=== PATIENT | male | born 1990 | race Caucasian/White ===

== ENCOUNTER 2025-04-10 03:15 | Observation (INO) ==
[2025-04-10] MEDS: SODIUM CHLORIDE 0.9% 1,000 ML IV ONE (03:40)
[2025-04-10 03:57] LABS: Hematocrit (blood only) 44.1 % (42.0-52.0); Hemoglobin 15.5 g/dl (14.0-18.0); Immature Granulocytes # (auto) 0.02 K/uL (0.01-0.20); Immature Granulocytes % (auto) 0.4 %; Mean Corpuscular Hemoglobin 29.5 pg (25.0-34.0); Mean Corpuscular Volume 84.0 fL (80.0-100.0); Platelet Count 269 K/uL (130-400); RDW Standard Deviation 36.6 fL (36.4-46.3); Red Blood Count 5.25 M/uL (4.70-6.10); White Blood Count 4.84 K/ul (4.8-10.8)
[2025-04-10 04:15] LABS: Alanine Aminotransferase 54.0 U/L (7-52); Albumin Globulin Ratio 1.4 (0.9-2); Albumin Level 4.7 gm/dl (3.4-5.0); Alkaline Phosphatase 65.0 U/L (34-104); Anion Gap 6.0 (3-11); Bilirubin,Total 0.5 mg/dl (0.2-1.0); Blood Urea Nitrogen 15.0 mg/dl (6-23); Calcium 9.6 mg/dl (8.6-10.3); Carbon Dioxide 30.0 mmol/L (21-32); Chloride 103.0 mmol/L (98-107); Creatinine Clr Calc Pharmacy 145.6 ml/min; Globulin 3.3 gm/dl (2.5-4.0); Glucose 92.0 mg/dl (70-99(Fasting)); Lipase 23.0 U/L (11-82); Potassium 3.8 mmol/L (3.5-5.1); Sodium 139.0 mmol/L (136-145); Total Protein 8.0 gm/dl (6.0-8.3)
--- NOTE | 2025-04-10 04:19 | XRay Report ---
EXAM: XR chest 1V portable CLINICAL HISTORY: Chest pain, nonspecific TECHNIQUE: An X-ray image of the chest was obtained in the AP projection. COMPARISON: No prior studies are available for comparison. FINDINGS: Pulmonary Parenchyma: The lungs are clear bilaterally. There is no evidence of consolidation, collapse, or focal opacities. No pulmonary nodules are identified. There is no evidence of pleural effusion or pleural thickening. Heart and Mediastinum: The heart size and shape are normal. There is no mediastinal widening or masses. No hilar or mediastinal lymphadenopathy is present. Bony Thorax: The bony thorax appears intact without fractures or deformities. Soft Tissues: The soft tissues overlying the chest wall are unremarkable. Chest monitor leads are seen. IMPRESSION: No acute cardiopulmonary abnormalities are identified. Electronically signed by Arnaldo Iraheta 04-10-2025 04:18 AM
[2025-04-10 04:33] LABS: Chlamydia pneumoniae PCR Not Detected (NotDetected); Coronavirus 229E PCR Not Detected (NotDetected); Coronavirus CoV-2 (COVID19)PCR Not Detected (NotDetected); Coronavirus HKU1 PCR Not Detected (NotDetected); Coronavirus NL63 PCR Not Detected (NotDetected); Coronavirus OC43PCR Not Detected (NotDetected); Human Metapneumovirus PCR Not Detected (NotDetected); Parainfluenza Virus 1 PCR Not Detected (NotDetected); Parainfluenza Virus 2 PCR Not Detected (NotDetected); Parainfluenza Virus 3 PCR Not Detected (NotDetected); Parainfluenza Virus 4 PCR Not Detected (NotDetected); Respiratory Syncytial VirusPCR Not Detected (NotDetected); Rhinovirus/Enterovirus PCR DETECTED (NotDetected)
--- NOTE | 2025-04-10 05:33 | Emergency Department Note ---
History of Present Illness General Chief complaint: Chest Pain Stated complaint: CHEST PAIN Time Seen by Provider: 04/10/25 03:21 History of Present Illness Maximum Pain Intensity: 3 This is a 34-year-old male presenting to the emergency department for evaluation of left-sided chest pain worsening for the past 1 day. Patient states that it was difficult to sleep tonight, as the pain worsens when he lays down. Patient is usually healthy without chronic medical disease. He exercises on a regular basis and does not take any medication on a regular basis. He has not had fevers or chills. No shortness of breath, lightheadedness, dizziness, or abdominal pain. There is some family history of cardiac disease in grandparents. Patient rates his current discomfort a /10. Home Medications Medication Instructions Recorded Confirmed Type No Known Home Medications 04/10/25 04/10/25 History Allergies Allergy/AdvReac Type Severity Reaction Status Date / Time No Known Allergies Allergy Verified 04/10/25 05:54 Past Med/Surg History Problem List (Updated 04/10/25 @ 06:36 by Elmo Romero PA-C) Left-sided chest pain (Acute) Rhinovirus infection (Acute) RBBB Elevated troponin (Acute) No significant past surgical history No chronic diseases present Social History Smoking Status: Never smoker Preferred Language: [place] Islander Feels Safe at Home: Yes Review of Systems A total of 10 systems reviewed and were otherwise negative Physical Exam Vital Signs Vital Signs - 24 hr 04/10/25 03:18 04/10/25 03:28 04/10/25 03:28 Temperature 36.9 C Temperature Source Temporal Artery Scan Pulse Rate 72 Pulse Rate [Apical] Pulse Rhythm [Apical] Pulse Strength [Apical] Respiratory Rate 18 Respiratory Effort / Characteristics Non-Labored Spontaneous Respiratory Depth Normal Respiratory Pattern Regular Blood Pressure 161/117 H Blood Pressure [Right Arm] Blood Pressure Mean 131 Blood Pressure Mean [Right Arm] Blood Pressure Position [Right Arm] Pulse Oximetry 98 96 Oxygen Delivery Method Room Air Room Air Room Air Sepsis Recent Fever Within 48 Hours No Sepsis New/Unexplained Change in Mental Status N/A Sepsis Action Taken by Nursing No Action Required 04/10/25 04:30 04/10/25 06:04 Temperature Temperature Source Pulse Rate Pulse Rate [Apical] 64 70 Pulse Rhythm [Apical] Regular Regular Pulse Strength [Apical] Normal Normal Respiratory Rate 17 16 Respiratory Effort / Characteristics Non-Labored Spontaneous Non-Labored Respiratory Depth Normal Normal Respiratory Pattern Regular Regular Blood Pressure Blood Pressure [Right Arm] 145/92 H Blood Pressure Mean Blood Pressure Mean [Right Arm] 109 Blood Pressure Position [Right Arm] Sitting Lying Pulse Oximetry 96 97 Oxygen Delivery Method Room Air Room Air Sepsis Recent Fever Within 48 Hours Sepsis New/Unexplained Change in Mental Status Sepsis Action Taken by Nursing VITALS: Vitals are noted on the nurse's note and reviewed by myself. Vital signs stable. GENERAL: Well-developed, well-nourished, white male, who is in no acute distress and resting comfortably. Patient is cooperative with the examination. HEAD: Normocephalic atraumatic. EARS: External ear normal. External auditory canals clear, tympanic membranes pearly steven without erythema or effusion bilaterally. EYES: Pupils equal round and reactive to light and accommodation. Conjunctivae without injection, sclerae without icterus. Extraocular movements intact. NOSE: Patent, turbinates without inflammation or discharge. MOUTH: Mucous membranes moist. Pharynx without erythema, blood, or exudate. Uvula midline. Airway patent. NECK: Supple without nuchal rigidity. No lymphadenopathy. No thyromegaly. Cervical spine is nontender. HEART: Regular rate and rhythm without murmurs gallops or rubs. LUNGS: Clear to auscultation bilaterally without wheezes, rales or rhonchi. No retractions or accessory muscle use. ABDOMEN: Positive normal bowel sounds x 4. Soft, nontender, without masses or organomegaly. No guard Course Administered Medications Discontinued Medications Aspirin (Aspirin 81 Mg Chew) 324 mg PO NOW STA Stop: 04/10/25 06:01 Last Admin: 04/10/25 06:05 Dose: 324 mg Documented By: ralph Sodium Chloride (Nss) 1,000 mls @ 999 mls/hr IV .Q1H1M ONE Stop: 04/10/25 04:28 Last Infusion: 04/10/25 04:42 Dose: Infused Documented By: ralph Admin: 04/10/25 03:40 Dose: 999 mls/hr Documented By: ROGELIO Miscellaneous Information (Patient's Allergy Info Needs Entered) 1 each N/A Q30M STA Stop: 04/10/25 05:47 Last Admin: 04/10/25 06:14 Dose: Not Given Documented By: CAROLINA Potassium Chloride (Potassium Chloride Crtab 20 Meq Tabcr) 40 meq PO NOW STA Stop: 04/10/25 05:31 Last Admin: 04/10/25 06:08 Dose: 40 meq Documented By: ralph Medical Decision Making Differential Diagnosis Differential diagnosis includes, but is not limited to: Myocardial infarction, dysrhythmia, pericarditis, pneumothorax, aortic aneurysm/dissection, DVT/PE, anxiety, GERD, PUD, electrolyte imbalance, thyroid disorder, pneumonia, bronchitis, pancreatitis, and others Laboratory Data 04/10/25 03:38 04/10/25 03:38 Lab Results 04/10/25 04/10/25 Range/Units 03:38 05:12 WBC 4.84 (4.8-10.8) K/ul RBC 5.25 (4.70-6.10) M/uL Hgb 15.5 (14.0-18.0) g/dl Hct 44.1 (42.0-52.0) % MCV 84.0 (80.0-100.0) fL MCH 29.5 (25.0-34.0) pg MCHC 35.1 (32.0-36.0) g/dL RDW Std Deviation 36.6 (36.4-46.3) fL RDW Coeff of Cori 12.2 (11.5-14.5) % Plt Count 269 (130-400) K/uL MPV 9.4 (9.4-12.4) fL Immature Gran % (Auto) 0.4 % Neut % (Auto) 39.4 % Lymph % (Auto) 47.7 % [place] % (Auto) 10.5 % Eos % (Auto) 1.2 % Baso % (Auto) 0.8 % Neut # (Auto) 1.90 (1.40-6.50) K/uL Lymph # (Auto) 2.31 (1.20-3.40) K/uL [place] # (Auto) 0.51 (0.11-0.59) K/uL Eos # (Auto) 0.06 (0.00-0.50) K/uL Baso # (Auto) 0.04 (0.00-0.20) K/uL Immature Gran # (Auto) 0.02 (0.01-0.20) K/uL D-Dimer 230 (0-500) ug/L FEU Sodium 139 (136-145) mmol/L Potassium 3.8 (3.5-5.1) mmol/L Chloride 103 (98-107) mmol/L Carbon Dioxide 30 (21-32) mmol/L Anion Gap 6 (3-11) BUN 15 (6-23) mg/dl Creatinine 0.94 (0.6-1.4) mg/dl Est Cr Clr Drug Dosing 145.6 ml/min eGFR 109.09 BUN/Creatinine Ratio 16.0 (10-20) Glucose 92 (70-99(Fasting)) mg/dl Calcium 9.6 (8.6-10.3) mg/dl Total Bilirubin 0.5 (0.2-1.0) mg/dl AST 28 (13-39) U/L ALT 54 H (7-52) U/L Alkaline Phosphatase 65 (34-104) U/L Troponin I High Sens 48.9 H 61.0 H* D (0-20) pg/ml Total Protein 8.0 (6.0-8.3) gm/dl Albumin 4.7 (3.4-5.0) gm/dl Globulin 3.3 (2.5-4.0) gm/dl Albumin/Globulin Ratio 1.4 (0.9-2) Lipase 23 (11-82) U/L Urine Color Yellow Urine Appearance Clear (Clear) Urine pH 6.5 (4.5-7.5) Ur Specific [place] 1.013 (1.000-1.030) Urine Protein Negative (Negative) Urine Glucose (UA) Negative (Negative) Urine Ketones Negative (Negative) Urine Blood Negative (Negative) Urine Nitrite Negative (Negative) Urine Bilirubin Negative (Negative) Urine Urobilinogen Negative (Negative) Ur Leukocyte Esterase Negative (Negative) Urine Comment Adenovirus (PCR) Not Detected (NotDetected) B. pertussis DNA (PCR) Not Detected (NotDetected) B.parapertussis DNA PCR Not Detected (NotDetected) C. pneumoniae DNA (PCR) Not Detected (NotDetected) Coronavirus OC43 (PCR) Not Detected (NotDetected) Coronavirus HKU1 (PCR) Not Detected (NotDetected) Coronavirus 229E (PCR) Not Detected (NotDetected) SARS-CoV-2 (PCR) Not Detected (NotDetected) Coronavirus NL63 (PCR) Not Detected (NotDetected) Human Metapneumovir PCR Not Detected (NotDetected) Influenza Type A (PCR) Not Detected (NotDetected) Influenza Type B (PCR) Not Detected (NotDetected) M. pneumoniae (PCR) Not Detected (NotDetected) Parainfluenza 1 (PCR) Not Detected (NotDetected) Parainfluenza 2 (PCR) Not Detected (NotDetected) Parainfluenza 3 (PCR) Not Detected (NotDetected) Parainfluenza 4 (PCR) Not Detected (NotDetected) RSV (PCR) Not Detected (NotDetected) Entero/Rhino (PCR) DETECTED A (NotDetected) Imaging Data Radiologist's Impression: Chest X-Ray 04/10/25 03:28 EXAM: XR chest 1V portable CLINICAL HISTORY: Chest pain, nonspecific TECHNIQUE: An X-ray image of the chest was obtained in the AP projection. COMPARISON: No prior studies are available for comparison. FINDINGS: Pulmonary Parenchyma: The lungs are clear bilaterally. There is no evidence of consolidation, collapse, or focal opacities. No pulmonary nodules are identified. There is no evidence of pleural effusion or pleural thickening. Heart and Mediastinum: The heart size and shape are normal. There is no mediastinal widening or masses. No hilar or mediastinal lymphadenopathy is present. Bony Thorax: The bony thorax appears intact without fractures or deformities. Soft Tissues: The soft tissues overlying the chest wall are unremarkable. Chest monitor leads are seen. IMPRESSION: No acute cardiopulmonary abnormalities are identified. Electronically signed by Arnaldo Iraheta 04-10-2025 04:18 AM [facility] Narrative Physical exam and history were performed. Nursing notes, EMR, and Medication List were personally reviewed. No social concerns were identified as barriers to patients care. History was provided by the Patient. Patient appears to have chest pain bringing him to the ER. This does seem left- sided. There may be a positional component. Patient is usually healthy, and exercises regularly. He previously was in the and has an athletic build. IV access was established and labs were obtained. He was hydrated with normal saline. An order was placed for continuous cardiac monitoring. The monitor shows a rate of 82 with normal sinus rhythm. Patient's blood work is as above and was reviewed. He does not have a significant elevated white blood cell count, gross anemia, bandemia, or significant electrolyte imbalance. Lipase and transaminases not diagnostic. BioFire is POSITIVE for rhinovirus. Chest x-ray independently reviewed by myself and radiology showing no acute process. Initial troponin is elevated at 49, with repeat elevating at 61. Escalation of care was considered, and felt to be necessary. The patient has chest pain with an elevating troponin. This certainly could represent myocarditis or similar process. He does not have distinct pericarditis at this time on EKG x 2. Case was discussed with the on-call hospitalist team who agreed to evaluate the patient here in the ER. Please see their dictation for further patient course, plan, disposition. The chart was completed utilizing [employer] Speech Voice Recognition Software. Grammatical errors, random word insertions, pronoun errors, and incomplete sentences are an occasional consequence of this system due to software limitations, ambient noise, and hardware issues. Any formal questions or concerns about the content, text, or information contained within the body of this dictation should be directly addressed to the provider for clarification. Impression & Plan Elevated troponin, Rhinovirus infection, Left-sided chest pain Discharge Plan Visit Data Chief Complaint: Chest Pain Stated Complaint: CHEST PAIN ED Provider: Chucho Lipscomb ED Midlevel Provider: Elmo Romero Discharge Problem: Elevated troponin, Rhinovirus infection, Left-sided chest pain Patient Disposition: Being Evaluated by Hospitalist Condition: Good Forms Stand Alone Forms: Systems[employer] Prescriptions Prescriptions: No Action No Known Home Medications Referrals Referrals: PCP,NO [Primary Care Provider] -
[2025-04-10 05:34] LABS: Appearance Urine Clear (Clear); Glucose Urine UA Negative (Negative)
[2025-04-10] MEDS: ASPIRIN 81 MG CHEW PO STA (06:05)
[2025-04-10] MEDS: POTASSIUM CHLORIDE CRTAB 20 MEQ TABCR PO STA (06:08)
--- NOTE | 2025-04-10 06:08 | History & Physical Report ---
Date of Service April 10, 2025 Assessment & Plan (1) Elevated troponin: (2) RBBB: (3) Rhinovirus infection: Plan The patient is a 34-year-old male with no significant past medical history. He reports that 2 days ago he began to develop some left parasternal chest discomfort, which radiated toward his left axillary midline. He denies any recent travels or sick exposures, he denies any changes in physical activity. 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 He has no nausea or vomiting associated with it. In emergency department he was found to have elevated troponin 48.9, and EKG with normal sinus rhythm and right bundle branch block. Potassium was 3.8, AST was 54. Patient was referred to the [facility] for further evaluation and treatment and admission. Respiratory BioFire test was positive for enterovirus/rhinovirus. Chest x-ray was negative. Elevated troponin/right bundle branch block- Troponin 48.9, follow-up pending The patient will be admitted to telemetry for serial cardiac enzymes, serial EKG's, cardiac rhythm monitoring and a 2-D echocardiogram with Dopplers. Differential including but not limited to: NSTEMI, myocarditis, pericarditis, supply/demand mismatch, others Order tick studies, magnesium level, ESR, uric acid level. Potassium 3.0, will give Klor-Con 40 mill equivalents p.o. now. Give aspirin 324 mg chewable now, and then 81 mg p.o. every morning Acetaminophen 650 mg by mouth every 6 hours as needed for mild pain or fever Consult cardiology Enterovirus/rhinovirus infection- Relatively asymptomatic as far as breathing issues he is not having shortness of breath or dyspnea on exertion. Echocardiogram help determine if patient has a viral pericarditis or myocarditis. Droplet precautions Elevated ALT- In combination with elevated troponin, tick studies have been ordered. History of Present Illness Chief Complaint: The patient presents to the emergency department with plaint of left parasternal chest discomfort which radiates under his ribs toward the mid axillary line. This began about 2 days ago, there is no associated rash, he has had no change in physical activity pattern. He denies any associated shortness of breath, dyspnea on exertion, radiation to neck or arm. He denies any recent travels or sick exposures Primary Care Provider: NO PCP The patient is a 34-year-old male with no significant past medical history. He reports that 2 days ago he began to develop some left parasternal chest discomfort, which radiated toward his left axillary midline. He denies any recent travels or sick exposures, he denies any changes in physical activity. 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 He has no nausea or vomiting associated with it. In emergency department he was found to have elevated troponin 48.9, and EKG with normal sinus rhythm and right bundle branch block. Potassium was 3.8, AST was 54. Patient was referred to the [facility] service for further evaluation and treatment and admission. Allergies Allergy/AdvReac Type Severity Reaction Status Date / Time No Known Allergies Allergy Verified 04/10/25 05:54 Home Medications Medication Instructions Recorded Confirmed Type No Known Home Medications 04/10/25 04/10/25 History Past Med/Surg History Problem List (Updated 04/10/25 @ 06:25 by Nasim French MD) Rhinovirus infection RBBB Elevated troponin No significant past surgical history No chronic diseases present Social History Smoking Status: Never smoker Preferred Language: Luxembourgish Feels Safe at Home: Yes Review of Systems Review of Systems: The patient denies palpitations, shortness of breath, dyspnea on exertion, cough, lower extremity swelling, sore throat, fevers, chills, sweats, weight change, fatigue, nausea, vomiting, diarrhea , constipation, abdominal pain, pelvic pain, blood in urine or stool, dysuria, urinary frequency or urgency, lightheadedness, dizziness, headache, memory loss, loss of consciousness, rash, abnormal bruising or bleeding, imbalance, focal or generalized weakness, numbness or tingling in arms or legs, generalized arthralgias or myalgias, back or neck pain, or night sweats. The review of systems is otherwise negative other than for that already noted above, and at least 10 systems have been reviewed. Physical Exam Physical Exam: The patient is awake, alert and oriented 3, well developed and well nourished, normocephalic and atraumatic, lying in bed and in no acute distress. HEENT--PERRL, EOMI, mucous membranes and oropharynx mildly dry. Neck--supple. No JVD. No bruits. Thyroid normal, trachea midline, no adenopathy. Heart--normal S1 and S2. No murmurs, rubs or gallops. Lungs--clear bilaterally, no respiratory distress, no accessory muscle use. No reproducible chest wall pain Abdomen--normal bowel sounds and soft. Nontender. Nondistended, no hernias or masses, no organomegaly. Extremities--no cyanosis or clubbing. No edema. There are good distal pulses b/l. Dermatologic--normal skin turgor, normal color, no abnormal lymph nodes, no rash. Neurologic--cranial nerves II through XII grossly intact. Rheumatologic--normal range of motion. Psychiatric--normal affect. Results & Data Results & Data Vital Signs (Past 12 Hours) Vital Signs Temp Pulse Pulse Resp BP BP Pulse Ox 04/10/25 06:04 70 16 97 04/10/25 04:30 64 17 145/92 H 96 04/10/25 03:28 04/10/25 03:28 96 04/10/25 03:18 36.9 C 72 18 161/117 H 98 O2 Del Method 04/10/25 06:04 Room Air 04/10/25 04:30 Room Air 04/10/25 03:28 Room Air 04/10/25 03:28 Room Air 04/10/25 03:18 Room Air Laboratory Results Laboratory Results WBC 4.84 K/ul (4.8-10.8) 04/10/25 03:38 RBC 5.25 M/uL (4.70-6.10) 04/10/25 03:38 Hgb 15.5 g/dl (14.0-18.0) 04/10/25 03:38 Hct 44.1 % (42.0-52.0) 04/10/25 03:38 MCV 84.0 fL (80.0-100.0) 04/10/25 03:38 MCH 29.5 pg (25.0-34.0) 04/10/25 03:38 MCHC 35.1 g/dL (32.0-36.0) 04/10/25 03:38 RDW Std Deviation 36.6 fL (36.4-46.3) 04/10/25 03:38 RDW Coeff of Cori 12.2 % (11.5-14.5) 04/10/25 03:38 Plt Count 269 K/uL (130-400) 04/10/25 03:38 MPV 9.4 fL (9.4-12.4) 04/10/25 03:38 Immature Gran % (Auto) 0.4 % 04/10/25 03:38 Neut % (Auto) 39.4 % 04/10/25 03:38 Lymph % (Auto) 47.7 % 04/10/25 03:38 [place] % (Auto) 10.5 % 04/10/25 03:38 Eos % (Auto) 1.2 % 04/10/25 03:38 Baso % (Auto) 0.8 % 04/10/25 03:38 Neut # (Auto) 1.90 K/uL (1.40-6.50) 04/10/25 03:38 Lymph # (Auto) 2.31 K/uL (1.20-3.40) 04/10/25 03:38 [place] # (Auto) 0.51 K/uL (0.11-0.59) 04/10/25 03:38 Eos # (Auto) 0.06 K/uL (0.00-0.50) 04/10/25 03:38 Baso # (Auto) 0.04 K/uL (0.00-0.20) 04/10/25 03:38 Immature Gran # (Auto) 0.02 K/uL (0.01-0.20) 04/10/25 03:38 D-Dimer 230 ug/L FEU (0-500) 04/10/25 03:38 Sodium 139 mmol/L (136-145) 04/10/25 03:38 Potassium 3.8 mmol/L (3.5-5.1) 04/10/25 03:38 Chloride 103 mmol/L (98-107) 04/10/25 03:38 Carbon Dioxide 30 mmol/L (21-32) 04/10/25 03:38 Anion Gap 6 (3-11) 04/10/25 03:38 BUN 15 mg/dl (6-23) 04/10/25 03:38 Creatinine 0.94 mg/dl (0.6-1.4) 04/10/25 03:38 Est Cr Clr Drug Dosing 145.6 ml/min 04/10/25 03:38 eGFR 109.09 04/10/25 03:38 BUN/Creatinine Ratio 16.0 (10-20) 04/10/25 03:38 Glucose 92 mg/dl (70-99(Fasting)) 04/10/25 03:38 Calcium 9.6 mg/dl (8.6-10.3) 04/10/25 03:38 Total Bilirubin 0.5 mg/dl (0.2-1.0) 04/10/25 03:38 AST 28 U/L (13-39) 04/10/25 03:38 ALT 54 U/L (7-52) H 04/10/25 03:38 Alkaline Phosphatase 65 U/L (34-104) 04/10/25 03:38 Troponin I High Sens 61.0 pg/ml (0-20) H* D 04/10/25 05:12 Total Protein 8.0 gm/dl (6.0-8.3) 04/10/25 03:38 Albumin 4.7 gm/dl (3.4-5.0) 04/10/25 03:38 Globulin 3.3 gm/dl (2.5-4.0) 04/10/25 03:38 Albumin/Globulin Ratio 1.4 (0.9-2) 04/10/25 03:38 Lipase 23 U/L (11-82) 04/10/25 03:38 Urine Color Yellow 04/10/25 05:12 Urine Appearance Clear (Clear) 04/10/25 05:12 Urine pH 6.5 (4.5-7.5) 04/10/25 05:12 Ur Specific [place] 1.013 (1.000-1.030) 04/10/25 05:12 Urine Protein Negative (Negative) 04/10/25 05:12 Urine Glucose (UA) Negative (Negative) 04/10/25 05:12 Urine Ketones Negative (Negative) 04/10/25 05:12 Urine Blood Negative (Negative) 04/10/25 05:12 Urine Nitrite Negative (Negative) 04/10/25 05:12 Urine Bilirubin Negative (Negative) 04/10/25 05:12 Urine Urobilinogen Negative (Negative) 04/10/25 05:12 Ur Leukocyte Esterase Negative (Negative) 04/10/25 05:12 Urine Comment 04/10/25 05:12 Adenovirus (PCR) Not Detected (NotDetected) 04/10/25 03:38 B. pertussis DNA (PCR) Not Detected (NotDetected) 04/10/25 03:38 B.parapertussis DNA PCR Not Detected (NotDetected) 04/10/25 03:38 C. pneumoniae DNA (PCR) Not Detected (NotDetected) 04/10/25 03:38 Coronavirus OC43 (PCR) Not Detected (NotDetected) 04/10/25 03:38 Coronavirus HKU1 (PCR) Not Detected (NotDetected) 04/10/25 03:38 Coronavirus 229E (PCR) Not Detected (NotDetected) 04/10/25 03:38 SARS-CoV-2 (PCR) Not Detected (NotDetected) 04/10/25 03:38 Coronavirus NL63 (PCR) Not Detected (NotDetected) 04/10/25 03:38 Human Metapneumovir PCR Not Detected (NotDetected) 04/10/25 03:38 Influenza Type A (PCR) Not Detected (NotDetected) 04/10/25 03:38 Influenza Type B (PCR) Not Detected (NotDetected) 04/10/25 03:38 M. pneumoniae (PCR) Not Detected (NotDetected) 04/10/25 03:38 Parainfluenza 1 (PCR) Not Detected (NotDetected) 04/10/25 03:38 Parainfluenza 2 (PCR) Not Detected (NotDetected) 04/10/25 03:38 Parainfluenza 3 (PCR) Not Detected (NotDetected) 04/10/25 03:38 Parainfluenza 4 (PCR) Not Detected (NotDetected) 04/10/25 03:38 RSV (PCR) Not Detected (NotDetected) 04/10/25 03:38 Entero/Rhino (PCR) DETECTED (NotDetected) A 04/10/25 03:38 Impressions Chest X-Ray 04/10/25 03:28 EXAM: XR chest 1V portable CLINICAL HISTORY: Chest pain, nonspecific TECHNIQUE: An X-ray image of the chest was obtained in the AP projection. COMPARISON: No prior studies are available for comparison. FINDINGS: Pulmonary Parenchyma: The lungs are clear bilaterally. There is no evidence of consolidation, collapse, or focal opacities. No pulmonary nodules are identified. There is no evidence of pleural effusion or pleural thickening. Heart and Mediastinum: The heart size and shape are normal. There is no mediastinal widening or masses. No hilar or mediastinal lymphadenopathy is present. Bony Thorax: The bony thorax appears intact without fractures or deformities. Soft Tissues: The soft tissues overlying the chest wall are unremarkable. Chest monitor leads are seen. IMPRESSION: No acute cardiopulmonary abnormalities are identified. Electronically signed by Arnaldo Iraheta 04-10-2025 04:18 AM Code Status & VTE Plan Code Status Full code VTE Prophylaxis Plan VTE Prophylaxis will be ordered: Yes PG Care Time/CCT Total # of Minutes Spent Total Time Spent with Patient: Total time spent is greater than 50% in coordination of care (as documented) at patient's floor/unit and/or counseling patient: Coding Level of Care Code 45164 INT INP/OBS CARE 3/75MIN Diagnoses Elevated troponin R79.89 RBBB I45.10 Rhinovirus infection B34.8
[2025-04-10 06:57] LABS: Magnesium 2.1 mg/dl (1.7-2.4); Uric Acid 5.4 mg/dl (2.6-7.2)
[2025-04-10] MEDS ORDERED: ONDANSETRON INJ 2 MG/ML 2 ML VIAL IV PRN (07:52)
[2025-04-10] MEDS ORDERED: ACETAMINOPHEN 325 MG TAB PO PRN (07:52)
--- NOTE | 2025-04-10 10:05 | XCELERA ---
[id number] \\[id number]
--- NOTE | 2025-04-10 11:34 | Cardiology Consultation ---
Date of Consultation April 10, 2025 Assessment & Plan (1) Left-sided chest pain: -History consistent with noncardiac chest pain (? related to rhinovirus infection). -Echocardiogram and EKG unremarkable. -Minor troponin elevation of no clinical significance. -Discussed the possibility of a stress echocardiogram, however, no interest at this time. -Stable for hospital discharge with follow-up at critical access hospital. (2) Rhinovirus infection: -Currently in respiratory isolation. History of Present Illness Attending Physician: Nasim French MD History of Present Illness Mr. Teixeira is a 34-year-old male admitted earlier today with a chest pain syndrome. This consultation was ordered to assist in his management. The patient was in his usual state of health until approximately 2 days prior to presentation. He developed a left-sided chest discomfort which he described as and "ache." This sensation radiated to the left axilla. There were no other associated symptoms such as shortness of breath, nausea, vomiting, or diaphoresis. There was no change in his symptoms with physical activity. Specifically, on the first day of symptoms, the patient walked for several miles on a treadmill with no change in his symptoms. The patient was found to have an active rhinovirus infection. He is currently in respiratory isolation. We have discussed his normal echocardiogram and EKG. We have also discussed the diagnosis of classic exertional angina pectoris. We discussed the possibility of proceeding with a stress echocardiogram, however, the patient not interested at this time. I agree with his decision. Currently, patient is resting comfortably in bed. He does note very vague left- sided chest symptoms as described above. Past medical and surgical history 1. 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 Hails from [place], [place] No tobacco Rare alcohol Family history Parents are alive and well Siblings are all healthy Review of systems A 10 point review of system was undertaken and negative except that described above. Allergies Allergy/AdvReac Type Severity Reaction Status Date / Time No Known Allergies Allergy Verified 04/10/25 05:54 Home Medications Medication Instructions Recorded Confirmed Type No Known Home Medications 04/10/25 04/10/25 History Patient History Social History Smoking Status: Never smoker Second Hand Exposure: No; Do You Dip or Chew Tobacco: No; Tobacco Cessation Education Requested by Patient: No Hx Alcohol Use: No Hx Substance Use: No Preferred Language: Japanese Communication Ability: Effective Traveling Passenger Agent Required: No Beliefs That Will Affect Care: None Current Living Situation: Other Other Information That Helps Us Care for You: No Feels Safe at Home: Yes Safety Concerns: Feels Safe At This Time Assistive Devices: None Physical Exam Physical Exam: In general this is a well-developed well-nourished white male in no acute distress. HEENT exam is negative. Neck reveals normal carotid upstrokes without bruits. Jugular venous pressure is flat at 90. There is no thyromegaly. Cardiovascular exam reveals a regular rhythm with a normal S1 and a physiologically split S2. No S3, S4, or murmurs are noted. Lungs are clear witho ut rales, rhonchi, or wheezes. Abdomen is soft without bruits. Extremities reveal intact radial artery and posterior tibial pulses bilaterally. There is no peripheral edema. Results & Data Vital Signs (Past 12 Hours) Vital Signs Temp Pulse Pulse Resp BP BP Pulse Ox 04/10/25 09:13 36.5 C 89 16 123/76 95 04/10/25 09:00 78 04/10/25 07:00 74 20 156/103 H 94 04/10/25 06:04 70 16 97 04/10/25 04:30 64 17 145/92 H 96 04/10/25 03:34 72 04/10/25 03:28 04/10/25 03:28 96 04/10/25 03:18 36.9 C 72 18 161/117 H 98 O2 Del Method 04/10/25 09:13 Room Air 04/10/25 09:00 04/10/25 07:00 04/10/25 06:04 Room Air 04/10/25 04:30 Room Air 04/10/25 03:34 04/10/25 03:28 Room Air 04/10/25 03:28 Room Air 04/10/25 03:18 Room Air PG Care Time/CCT Total # of Minutes Spent Total Time Spent with Patient: Total time spent is greater than 50% in coordination of care (as documented) at patient's floor/unit and/or counseling patient: Coding Level of Care Code 13509 IN/OBS CONSULT LVL 4,60M Diagnoses Left-sided chest pain R07.9 Rhinovirus infection B34.8
--- NOTE | 2025-04-10 12:34 | Electrocardiogram Report ---
Test Reason : Blood Pressure : */* mmHG Vent. Rate : 65 BPM Atrial Rate : 65 BPM P-R Int : 192 ms QRS Dur : 106 ms QT Int : 400 ms P-R-T Axes : 48 49 52 degrees QTcB Int : 416 ms Normal sinus rhythm RSR' or QR pattern in V1 suggests right ventricular conduction delay Otherwise Normal ECG When compared with ECG of 10-Apr-2025 03:23, (unconfirmed) No significant change was found Confirmed by Parvez Dorado ([id number]) on 04/10/2025 12:34:26 PM Referred By: REFERRED SELF Confirmed By: Parvez Dorado
--- NOTE | 2025-04-10 12:34 | Electrocardiogram Report ---
Test Reason : Blood Pressure : */* mmHG Vent. Rate : 73 BPM Atrial Rate : 73 BPM P-R Int : 182 ms QRS Dur : 102 ms QT Int : 392 ms P-R-T Axes : 58 57 59 degrees QTcB Int : 431 ms Normal sinus rhythm RSR' or QR pattern in V1 suggests right ventricular conduction delay Otherwise Normal ECG No previous ECGs available Confirmed by Parvez Dorado ([id number]) on 04/10/2025 12:34:43 PM Referred By: REFERRED SELF Confirmed By: Parvez Dorado
[2025-04-10] MEDS ORDERED: IBUPROFEN 600 MG TAB PO PRN (15:51)
[2025-04-10 16:18] VITALS: BP 145/91; PULSE 71; RESP 20; TEMP 97.7; O2SAT 95
[2025-04-10] MEDS: COLCHICINE 0.6 MG TAB PO ONE (16:56)
--- NOTE | 2025-04-10 18:35 | Discharge Summary ---
Discharge Summary Date of Service April 10, 2025 Principal Dx & Hospital Course #1 = Principal Diagnosis (1) Elevated troponin: (2) RBBB: (3) Rhinovirus infection: Plan The patient is a 34-year-old male with no significant past medical history. He reports that 2 days ago he began to develop some left parasternal chest discomfort, which radiated toward his left axillary midline. He denies any recent travels or sick exposures, he denies any changes in physical activity. 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 He has no nausea or vomiting associated with it. In emergency department he was found to have elevated troponin 48.9, and EKG with normal sinus rhythm and right bundle branch block. Potassium was 3.8, AST was 54. Patient was referred to the [facility] for further evaluation and treatment and admission. Respiratory BioFire test was positive for enterovirus/rhinovirus. Chest x-ray was negative. Elevated troponin/right bundle branch block- Troponin 48.9, follow-up pending The patient will be admitted to telemetry for serial cardiac enzymes, serial EKG's, cardiac rhythm monitoring and a 2-D echocardiogram with Dopplers. Differential including but not limited to: NSTEMI, myocarditis, pericarditis, supply/demand mismatch, others Order tick studies, magnesium level, ESR, uric acid level. Potassium 3.0, will give Klor-Con 40 mill equivalents p.o. now. Give aspirin 324 mg chewable now, and then 81 mg p.o. every morning Acetaminophen 650 mg by mouth every 6 hours as needed for mild pain or fever Consult cardiology Enterovirus/rhinovirus infection- Relatively asymptomatic as far as breathing issues he is not having shortness of breath or dyspnea on exertion. Echocardiogram help determine if patient has a viral pericarditis or myocardit is. Droplet precautions Elevated ALT- In combination with elevated troponin, tick studies have been ordered. Admission HPI Per Admitting Provider The patient is a 34-year-old male with no significant past medical history. He reports that 2 days ago he began to develop some left parasternal chest discomfort, which radiated toward his left axillary midline. He denies any recent travels or sick exposures, he denies any changes in physical activity. 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 He has no nausea or vomiting associated with it. In emergency department he was found to have elevated troponin 48.9, and EKG with normal sinus rhythm and right bundle branch block. Potassium was 3.8, AST was 54. Patient was referred to the [facility] for further evaluation and treatment and admission. Discharge Plan Discharge Items Patient Disposition: Home - Self-Care Reason For Visit: ELEVATED TROPONIN, CHEST PAIN Discharge Diagnosis: 1. chest pain - improved; due to pericarditis from rhinovirus? 2. elevated troponin level (blood work for the heart) - due to #1? Activity: As commented below Activity Comment: no heavy exertional activity until you see cardiology Sexual Activity: Wait until after follow-up appointment Exercise/Sports: Wait until after follow-up appointment Non-emergency contact: Primary Care Provider Call non-emergency contact if: you have any medication questions, your symptoms worsen, your pain is not controlled, your pain is worsening, your pain is unusual for you and your pain is concerning for you Follow-up/Referrals: Parvez Dorado MD [Physician] - (we will set you up with [facility] for recheck ) PCP,CHRIS [Primary Care Provider] - Diet: Regular Addtl Attending Provider Instructions: Mr Teixeira, Yang were hospitalized due to having left-sided chest pain. This was associated with an elevated troponin level. Troponin is a chemical released by the heart into the bloodstream. Elevated troponin can be elevated for a wide variety of reasons - some serious (heart attack, congestive heart failure, etc), and some not related to the heart at all (various infections, severe bodily physical stress, etc). Heart monitoring during your brief stay was normal. Your echocardiogram showed normal heart function & anatomy. It was not fully certain the exact cause of your pain and the modestly elevated troponin level. Pericarditis, which is inflammation of the lining of the heart, can cause chest pain that worsens with laying down. It is often caused by viruses. You did test positive for a common respiratory virus called "rhinovirus." And your symptoms were worse when laying down. Your symptoms improved with aspirin. Although you are feeling better, ideally we would like to observe you overnight to ensure your symptoms do not return. However, you expressed a strong desire to discharge home this evening. We will treat for presumptive pericarditis with a medicine called "colchicine" twice daily. The most common side effect is diarrhea/loose stool. Prescription sent to [facility] for you. I highly recommend that you see Dr Dorado from [facility] OR one of his partners within the next week to be rechecked. You potentially may need additional testing including a stress test which Dr Dorado had discussed with you. If your symptoms worsen or persist you MUST seek medical attention right away. In addition to the colchicine please - -avoid heavy exertional activities at this time -avoid alcohol use -again follow-up with Dr Dorado or one of his associates within the next week -if you have any mild discomforts over the next few days you can take [id number] ibuprofen, 600mg (200mg tab x 3) every 6 hours as needed Return to [facility] if - -you experience recurrent chest pains - similar to what brought you to the hospital early on 04/10 -you have back pains especially in conjunction with chest discomfort -you have arm pains -you feel short of breath -you have severe dizziness or lightheadedness -any other concerns It was our pleasure to care for you! Pending Studies at Discharge: No Stand-Alone Forms: My [facility], Smoking Cessation Medications and DC Order Prescriptions: New ibuprofen 600 mg Tablet 600 mg PO Q6H PRN (Reason: chest pain) Qty: 1 0RF Rx Instructions: purchase [id number]; take with food colchicine [Colcrys] 0.6 mg Tablet 0.6 mg PO BID Qty: 60 2RF Discharge Orders: Discharge Order (Routine); Ordered 04/10/25 Ordered By: Walter Rice Admission Data Admit Date/Time: 04/10/25 06:08 Attending Provider: Nasim French Admit Provider: Nasim French Primary Care Provider: PCP,NO Other Providers: Nasim French; Pravin Bowser Hospital Stay Data Consultations 04/10/25 05:28 ED Decision to Admit Stat 04/10/25 06:29 Consult Cardiology Routine Pending Results Patient Have Any Pending Studies at Discharge: No Discharge Instructions Given to Patient (Per Discharging Provider) Yang Christainson were hospitalized due to having left-sided chest pain. This was associated with an elevated troponin level. Troponin is a chemical released by the heart into the bloodstream. Elevated troponin can be elevated for a wide variety of reasons - some serious (heart attack, congestive heart failure, etc), and some not related to the heart at all (various infections, severe bodily physical stress, etc). Heart monitoring during your brief stay was normal. Your echocardiogram showed normal heart function & anatomy. It was not fully certain the exact cause of your pain and the modestly elevated troponin level. Pericarditis, which is inflammation of the lining of the heart, can cause chest pain that worsens with laying down. It is often caused by viruses. You did test positive for a common respiratory virus called "rhinovirus." And your symptoms were worse when laying down. Your symptoms improved with aspirin. Although you are feeling better, ideally we would like to observe you overnight to ensure your symptoms do not return. However, you expressed a strong desire to discharge home this evening. We will treat for presumptive pericarditis with a medicine called "colchicine" twice daily. The most common side effect is diarrhea/loose stool. Prescription sent to [facility] for you. I highly recommend that you see Dr Dorado from [facility] OR one of his partners within the next week to be rechecked. You potentially may need additional testing including a stress test which Dr Dorado had discussed with you. If your symptoms worsen or persist you MUST seek medical attention right away. In addition to the colchicine please - -avoid heavy exertional activities at this time -avoid alcohol use -again follow-up with Dr Dorado or one of his associates within the next week -if you have any mild discomforts over the next few days you can take [id number] ibuprofen, 600mg (200mg tab x 3) every 6 hours as needed Return to [facility] if - -you experience recurrent chest pains - similar to what brought you to the hospital early on 04/10 -you have back pains especially in conjunction with chest discomfort -you have arm pains -you feel short of breath -you have severe dizziness or lightheadedness -any other concerns It was our pleasure to care for you! Coding Diagnoses Elevated troponin R79.89 RBBB I45.10 Rhinovirus infection B34.8
[2025-04-10] MEDS ORDERED: COLCHICINE 0.6 MG TAB PO SCH (21:00)
[2025-04-11] MEDS ORDERED: ASPIRIN 81 MG ECTAB PO SCH (09:00)
== END 2025-04-10 18:53 | disposition home or self-care (01) ==
LOC: SUATTDRO → 4W 03:15 → ED 03:15 → 4W 07:28